=== PATIENT | male | born 2000 | race Caucasian/White ===

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

== ENCOUNTER 2025-04-22 17:32 | Emergency (ER) | payer OTHER, SELFPAY ==
[2025-04-22 17:51] VITALS: BP 127/84; PULSE 116; RESP 19; TEMP 37.2; O2SAT 99; BMI 20.9
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
[2025-04-22] MEDS: AMOXICILLIN/CLAV 875/125 MG 1 TAB PO (19:13)
[2025-04-22 19:14] VITALS: BP 134/80; PULSE 100; RESP 17; O2SAT 98
--- NOTE | 2025-04-22 19:17 | PC.NURSE ---
3 small dog bite wounds on right forearm <2cm in length were cleansed and irrigated and dressed with steristrips.
== END 2025-04-22 19:20 | disposition home or self-care (01) ==
PROVIDERS: Emergency Provider Student in an Organized Health Care Education/Training Program
DX: S51.851A Open bite of right forearm, initial encounter (principal); W54.0XXA Bitten by dog, initial encounter
CPT/HCPCS: 99283